=== PATIENT | male | born 1980 | race Caucasian/White ===

== ENCOUNTER → 2017-03-04 | Outpatient (CLI) | payer BC ==
[~2017-03-04] MED LIST: ALBUTEROL2.5 MG/0.5 IH; ATROVENT15 ML NS; CIPRO500 MG PO; CIPROFLOXACIN500 M1 PO; CLEOCIN HCL150 MG PO; FLAGYL500 MG PO; FLEXERIL PO; GABAPENTIN 100100 MG PO; LIORESAL 10 MG10 MG PO; NORCO 5-325 TA1 EACH PO; PREDNISONE50 MG PO; TRAMADOL 50 MG50 MG PO; ZOFRAN4 MG PO; ZPAK PO
== END ==
LOC: M.RAD 16:41
DX: M54.5 Low back pain (principal)

== ENCOUNTER → 2017-03-17 | Outpatient (CLI) | payer BC | LOC: M.CT 03-15 11:30 | DX: N20.0 Calculus of kidney (principal); K76.0 Fatty (change of) liver, not elsewhere classified ==

== ENCOUNTER → 2017-04-29 | Outpatient (CLI) | payer BC | LOC: M.CT 13:12 | DX: J45.909 Unspecified asthma, uncomplicated (principal); M54.2 Cervicalgia ==

== ENCOUNTER → 2017-05-03 | Outpatient (CLI) | payer BC | LOC: M.MRI 15:49 | DX: M48.02 Spinal stenosis, cervical region (principal); R07.89 Other chest pain ==

== ENCOUNTER → 2018-08-18 | Outpatient (CLI) | payer BC | LOC: M.MRI 07-07 11:30 | DX: M48.061 Spinal stenosis, lumbar region without neurogenic claudication (principal); M54.42 Lumbago with sciatica, left side; M54.41 Lumbago with sciatica, right side ==